=== PATIENT | female | born 1995 | race Caucasian/White ===

== ENCOUNTER 2018-12-13 00:50 | Inpatient (IN) | payer BC ==
[2018-12-13] MEDS ORDERED: Ondansetron PF 4 MG/2 ML Vial IVP PRN ×3 (01:04→21:22)
[2018-12-13] MEDS ORDERED: Ibuprofen 800 MG TAB PO PRN (01:04)
[2018-12-13] MEDS ORDERED: HYDROcodone/Acetaminophen 5/325 mg Tablet PO PRN ×4 (01:04→21:22)
[2018-12-13] MEDS ORDERED: Lactated Ringer's 1,000 ML IV SCH (01:04)
[2018-12-13] MEDS ORDERED: NS w/ Oxytocin 10 units 500 ML IV SCH (01:04)
[2018-12-13] MEDS ORDERED: Lidocaine 1% (PF) 30 ML VIAL SC PRN (01:04)
[2018-12-13] MEDS ORDERED: hydrALAZINE 20 MG/ML VIAL SLOW IVP PRN ×2 (01:04→21:22)
[2018-12-13] MEDS ORDERED: Zolpidem Tartrate 5 MG TAB PO PRN ×2 (01:04→21:22)
[2018-12-13] MEDS ORDERED: Butorphanol Tartrate 1 MG/ML VIAL SLOW IVP PRN (01:04)
[2018-12-13] MEDS ORDERED: Misoprostol 100 MCG TAB VAG SCH (01:04)
[2018-12-13] MEDS ORDERED: Promethazine HCl 25 MG/ML VIAL IM PRN ×2 (01:04→13:48)
[2018-12-13 01:20] VITALS: BMI 29.6
[2018-12-13] MEDS: Lactated Ringer's 1,000 ML IV SCH (01:20)
[2018-12-13 01:32] LABS: Mean Corpuscular HGB CONC 34.6 g/dL (32.0-36.0); Mean Corpuscular Hemoglobin 29.2 pg (27.0-31.0); Mean Corpuscular Volume 84.5 fL (78.0-98.0); Mean Platelet Volume 7.1 fL (7.4-10.4); Platelet Count 229 thou/uL (130-400); RBC Distribution Width 11.9 % (11.5-14.5); Red Blood Cell (RBC) Count 4.09 mill/uL (4.20-5.40); White Blood Cell (WBC) Count 11.6 thou/uL (4.8-10.8)
[2018-12-13 02:15] LABS: HBSAg Index 0.16 S/CO (0-0.99); Hep B Surf Ag Non-Reactive S/CO (NonReactive)
[2018-12-13 04:55] LABS: Syphilis Antibody Nonreactive (Nonreactive); Syphilis Antibody Index 0.12 S/CO (<1.00 Non-Reactive)
[2018-12-13] MEDS: Misoprostol 100 MCG TAB VAG SCH (05:18)
[2018-12-13] MEDS ORDERED: Lidocaine 1.5%/Epinephrine 1:200,000 5 ML AMPUL IJ ONE (09:32)
[2018-12-13] MEDS ORDERED: Fentanyl 4 mcg/Bup 0.1% Cadd 100 ML ONE (09:33)
[2018-12-13] MEDS ORDERED: Bupivacaine/Epinephrine 0.25% 30 ML VIAL ONE (11:11)
[2018-12-13] MEDS ORDERED: Lactated Ringer's 500 ML IV PRN (13:48)
[2018-12-13] MEDS ORDERED: Naloxone HCl 0.4 mg/ml Vial IVP PRN ×2 (13:48)
[2018-12-13] MEDS ORDERED: diphenhydrAMINE 50 MG/ML VIAL IVP PRN (13:48)
[2018-12-13] MEDS ORDERED: ePHEDrine/0.9% NaCl/PF SYRINGE 50 mg/10 ml SLOW IVP PRN (13:48)
[2018-12-13] MEDS ORDERED: Acetaminophen 325 MG TAB PO PRN (13:48)
[2018-12-13] MEDS ORDERED: Communication Order-Pharmacy FS SCH (14:00)
[2018-12-13] MEDS ORDERED: Fentanyl 4 mcg/Bupivacaine 0.1% Cassette 100 ML EPIDURAL SCH (14:00)
[2018-12-13] MEDS: NS / Oxytocin 40 units/1000ml 1,000 ML IV PRN ×2 (17:15→18:35)
[2018-12-13] MEDS ORDERED: NS / Oxytocin 40 units/1000ml 1,000 ML IV SCH (21:22)
[2018-12-13] MEDS ORDERED: Milk Of Magnesia 30 ML UDCUP PO PRN (21:22)
[2018-12-13] MEDS ORDERED: Benzocaine-Menthol 82.5 ML CAN TOP PRN (21:22)
[2018-12-13] MEDS ORDERED: Bisacodyl 10 MG SUPP PR PRN (21:22)
[2018-12-13] MEDS ORDERED: Preparation H Ointment 28 GM TUBE PR PRN (21:22)
[2018-12-13] MEDS ORDERED: Lanolin Ointment 7 GM TUBE TOP PRN (21:22)
[2018-12-13] MEDS ORDERED: diphenhydrAMINE 25 MG CAP PO PRN (21:22)
[2018-12-13] MEDS: Docusate Calcium (SURFAK) 240 MG CAP PO SCH (22:53)
[2018-12-13] MEDS: Ibuprofen 800 MG TAB PO SCH (23:07)
[2018-12-14] MEDS: Misoprostol 100 MCG TAB VAG SCH ×2 (01:42→01:43)
[2018-12-14] MEDS: Lactated Ringer's 1,000 ML IV SCH (01:43)
[2018-12-14] MEDS: Ibuprofen 800 MG TAB PO SCH ×3 (06:43→20:44)
[2018-12-14] MEDS: Ferrous Sulfate 325 MG TAB PO SCH ×2 (08:20→18:53)
[2018-12-14] MEDS ORDERED: Adacel (T-DAP) 0.5 ML SYRINGE IM ONE (09:00)
[2018-12-14] MEDS: Docusate Calcium (SURFAK) 240 MG CAP PO SCH ×2 (09:25→20:44)
[2018-12-14] MEDS: Prenatal Vitamin 1 TAB PO SCH (09:25)
--- NOTE | 2018-12-14 13:24 | PDOC.PP ---
Post Progress Note Post Day #: 1 PO intake tolerated: yes Flatus: yes Ambulation: yes Vital Signs (12 hours) Temp Pulse Resp BP Pulse Ox 12/14/18 12:15 98.1 F 62 20 114/62 12/14/18 08:32 97.8 F 58 L 20 93/53 L 95 12/14/18 06:30 98.1 F 71 20 109/71 Weight Weight 162 lb - Physical Examination General: NAD Cardiovascular: no m/r/g, RRR Respiratory: clear to auscultation bilaterally, non-labored breathing Abdominal: lochia, appropriately TTP Neurological: no gross focal deficits Psychiatric: A&Ox3, normal affect Result Diagrams: 12/13/18 01:22 Additional Labs: Post Labs Blood Type O POSITIVE 12/13/18 02:51 Hep Bs Antigen Non-Reactive S/CO (NonReactive) 12/13/18 01:22 - Assessment/Plan baby bili high. anticipate dc with b&b tomorrow
--- NOTE | 2018-12-15 02:56 | PDOC.PP ---
Post Progress Note Post Day #: PPD2 Subjective: Resting, no complaints. PO intake tolerated: yes Flatus: yes Ambulation: yes Vital Signs (12 hours) Temp Pulse Resp BP Pulse Ox 12/15/18 01:02 98.2 F 83 18 117/64 99 12/14/18 20:00 97.7 F 85 22 H 111/56 L 98 Weight Weight 73.482 kg - Physical Examination General: NAD Respiratory: non-labored breathing Neurological: no gross focal deficits Psychiatric: normal affect Result Diagrams: 12/13/18 01:22 Additional Labs: Post Labs Blood Type O POSITIVE 12/13/18 02:51 Hep Bs Antigen Non-Reactive S/CO (NonReactive) 12/13/18 01:22 - Assessment/Plan DC to B&B, baby with elevated bili under lights. RTC Dr. Davey in 2 weeks. Precautions.
[2018-12-15] MEDS: Ibuprofen 800 MG TAB PO SCH (05:36)
[2018-12-15 08:25] VITALS: BP 115/78; TEMP 98.1
[2018-12-15] MEDS: Prenatal Vitamin 1 TAB PO SCH (09:41)
[2018-12-15] MEDS: Docusate Calcium (SURFAK) 240 MG CAP PO SCH (09:41)
[2018-12-15] MEDS: Ferrous Sulfate 325 MG TAB PO SCH (09:41)
== END 2018-12-15 09:52 | disposition home or self-care (01) | DRG 807 ==
LOC: L&D 00:50 → 3SE 22:15
PROVIDERS: ADMIT Obstetrics & Gynecology; ATTEND Obstetrics & Gynecology
PROC: 10E0XZZ Delivery of Products of Conception, External Approach (ICD-10-PCS; principal; 2018-12-13)
PROC: 0KQM0ZZ Repair Perineum Muscle, Open Approach (ICD-10-PCS; 2018-12-13)
PROC: 3E0P7VZ Introduction of Hormone into Female Reproductive, Via Natural or Artificial Opening (ICD-10-PCS; 2018-12-13)
PROC: 10907ZC Drainage of Amniotic Fluid, Therapeutic from Products of Conception, Via Natural or Artificial Opening (ICD-10-PCS; 2018-12-13)
DX: O70.1 Second degree perineal laceration during delivery (principal); Z37.0 Single live birth; Z3A.39 39 weeks gestation of pregnancy
CPT/HCPCS: 36415; 51702; 85027; 86780; 86850; 86900; 86901; 87340; J2405; J2550; J2590; J3490